=== PATIENT | female | born 1955 | race Caucasian/White ===

== ENCOUNTER 2024-03-22 20:59 | Emergency (ER) | payer MEDICARE, SELFPAY ==
[2024-03-22 21:05] VITALS: BP 158/88
[2024-03-22 22:19] VITALS: BMI 35.0
--- NOTE | 2024-03-22 22:32 | ED.GENMED ---
History of Present Illness
General
Chief Complaint: Post Operative Problem(s)
Source: patient
Exam Limitations: none
Time Seen by Provider: 03/22/24 22:21
Nursing documentation reviewed up to this point in time: agreed with
History of Present Illness
History of Present Illness:
68-year-old female presents to the emergency with increased pain and swelling of her left lower extremity. She did note slight erythema. Patient is 6 days status post left total knee at [facility]. According to family member she was
prescribed Tylenol and oxycodone but has not been compliant with her pain medication regime. Today she called her surgeon's office who advised her to come to an emergency department for evaluation. Denies chest pain or shortness of breath.
Reports no other symptoms at this time.
Past History
Past History
ED Past Medical History: Other (Lymphedema, Palpatations)
ED Past Surgical History: Other (R mastectomy for breast CA)
Social History
Tobacco: Non-smoker
Alcohol: None
Personal:
Living: with family
Review of Systems
Review of Systems
Allergies reviewed?: Yes
Other source history: family
All Other Systems: ROS reviewed and negative except as documented in HPI and ROS
Constitutional: Reports no symptoms
EENT: Reports no symptoms
Respiratory: Reports no symptoms
Cardiac: Reports no symptoms
ABD/GI: Reports no symptoms
: Reports no symptoms
Musculoskeletal: Reports joint pain, joint swelling and edema
Skin: Reports no symptoms; Denies itching or rash
Neurological: Reports no symptoms
Endocrine: Reports no symptoms
Hematologic/Lymphatic: Reports no symptoms
Psychiatric: Reports no symptoms
Phy Exam
General Physical Exam
General Presentation: well appearing and mild distress
General age: appears stated age
General Habitus: elderly
Cardiovascular Exam
Cardiovascular Exam: regular rate/rhythm and no edema
Pulmonary Exam
Pulmonary Exam: lungs clear and no respiratory distress
Neurological Exam
Neurological Exam: alert and oriented x3
Musculoskeletal Exam
Musculoskeletal Exam: edema, joint swelling and neuro vasc intact
Skin Exam
Skin Exam: normal color, warm/dry and erythema (Scant erythema not consistent with cellulitis)
Course
Orders/Labs/Results
Orders:
Orders
03/22/24 22:30
HYDROmorphone [Dilaudid] 0.5 mg IV NOW STA
Ondansetron Injectable [Zofran] 4 mg IV NOW STA
US Legs, Left [US Periph Venous LOWER Ext LT] Urgent
Comment:
Reason For Exam: incr swelling s/p TK
03/22/24 22:43
Complete Blood Count/With Diff Urgent
Comprehensive Metabolic Panel Urgent
PTT Urgent
Prothrombin Time Urgent
Abnormal Lab Results
03/22/24
22:43
RBC 3.11 L 10^6/uL
(4.20-5.40)
Hgb 9.3 L g/dL
(12.0-16.0)
Hct 27.7 L %
(37.0-47.0)
MPV 11.8 H fL
(7.4-10.4)
Absolute Monos (auto) 0.9 H 10^3/uL
(0.1-0.6)
Monocytes % 11.1 H %
(1.7-9.3)
PT 15.0 H Sec
(11.4-14.6)
APTT 37.2 H Sec
(23.4-35.0)
Carbon Dioxide 32 H mmol/L
(22-30)
Creatinine 0.5 L mg/dL
(0.6-1.0)
Glucose 124 H mg/dl
(70-99)
Total Bilirubin 1.4 H mg/dl
(0.2-1.3)
AST 40 H U/L
(14-36)
Total Protein 6.1 L g/dl
(6.3-8.2)
03/22/24 22:43
03/22/24 22:43
Vital Signs
Initial and Last Documented VS:
Initial Vital Signs
Temp Pulse Resp BP Pulse Ox
98.2 F 91 18 158/88 99
03/22/24 21:05 03/22/24 21:05 03/22/24 21:05 03/22/24 21:05 03/22/24 21:05
Last Documented Vital Signs
Temp Pulse Resp BP Pulse Ox
98.2 F 91 18 118/56 98
03/22/24 21:05 03/22/24 21:05 03/22/24 21:05 03/23/24 00:00 03/23/24 00:15
*Critical Care Note
Total Time (30-74mins, 75-104mins- exclusive of procedures): Not Applicable
Update Note
Update Note:
03/23/2024 0043 AM: Ultrasound of the leg is negative
ED Attending Note
-
Portions of this chart may have been created with voice recognition software.� Occasional wrong word or��sound alike� substitutions may have occurred due to the inherent limitations of voice recognition software.
Discharge Plan
Departure
Patient Disposition: Home (Routine Discharge)
Date of Disposition: 03/23/24
Time of Disposition: 01:13
Patient with high blood pressure during this ER visit?: Yes
Condition: Fair
Discharge Problem:
Acute postoperative pain
Instructions: Wound Care (DC), Postoperative Pain (DC)
Prescriptions:
No Action
No Meds
Referrals:
Hernan Uriostegui MD [Family Provider] -
Activity Restrictions/Additional Instructions:
It was a pleasure meeting you and taking part in your care. We hope for your continued healing and wellness.
Please read discharge instructions in their entirety. However, they are for general education and may not describe your exact diagnosis at discharge. Information on your ER visit and medical conditions were discussed with you along with appropriate
follow up information...
If indicated, please take your medications as instructed and indicated on discharge paperwork.
Please schedule a follow up appointment as directed. Call to schedule an appointment
Please return to the emergency department with ANY change in, persisting, or worsening of symptoms. If any of your symptoms do not improve, or persist, or become more severe within 6-12 hours, please return to the emergency department for further
care.
Please return to the emergency department if you develop a headache, neck pain/stiffness, fever greater than 100.4F, chest pain, shortness of breath, persistent nausea, vomiting, slurred speech, difficulty walking, numbness/tingling, weakness, signs
of infection or any other symptoms that are worrisome to you.
If you have any questions or concerns please do not hesitate to call the Hospital at or E-mail me directly at [email or web address]
Interventions
Interventions:
*Risk Screen - Suicide Last Done: 03/22/24 21:05
*General Assessment Last Done: 03/22/24 21:05
*Neglect/Abuse Screening Last Done: 03/22/24 21:05
ED- Fall Risk Assessment Last Done: 03/22/24 22:19
*ED COVID-19 Vaccine History Last Done: 03/22/24 22:19
*Nursing Disposition Last Done: 03/23/24 01:41
ED-Skin Assessment Last Done: 03/22/24 22:19
Discharge Date and Time
Discharge Date/Time: 03/23/24 01:41
Print Language: GEORGIAN
[2024-03-22] MEDS: DILAUDID 0.5 MG IV (22:43)
[2024-03-22] MEDS: ZOFRAN 4 MG IV (22:43)
[2024-03-22 22:47] VITALS: BP 144/65
[2024-03-22 23:00] VITALS: BP 129/60
[2024-03-22 23:08] LABS: ALT (SGPT) 34 U/L (0-35); AST (SGOT) 40 U/L (14-36); Albumin 3.7 g/dl (3.5-5.0); Alkaline Phosphatase 82 U/L (38-126); Blood Urea Nitrogen 16 mg/dl (7-17); Carbon Dioxide 32 mmol/L (22-30); Chloride 98 mmol/L (98-107); Estimated Creatinine Clearance 86 ml/min; Glucose 124 mg/dl (70-99); Potassium 3.7 mmol/L (3.5-5.1); Sodium 136 mmol/L (135-145); Total Bilirubin 1.4 mg/dl (0.2-1.3); Total Protein 6.1 g/dl (6.3-8.2); eGFR > 60.00
[2024-03-22 23:10] LABS: INR 1.14
[2024-03-22 23:11] LABS: APTT 37.2 Sec (23.4-35.0)
[2024-03-22 23:14] LABS: % Basophils 0.4 % (0-2); % Eosinophils 1.8 % (0-6); % Immature Granulocytes 0.5 % (0-0.5); % Lymphocytes 21.1 % (20.5-51.1); % Monocytes 11.1 % (1.7-9.3); % Neutrophils 65.1 % (42.2-75.2); Absolute Eosinophils 0.1 10^3/uL (0-0.7); Absolute Lymphocytes 1.7 10^3/uL (1.2-3.4); Absolute Monocytes 0.9 10^3/uL (0.1-0.6); Absolute Neutrophils 5.1 10^3/uL (1.4-6.5); Hematocrit 27.7 % (37.0-47.0); Hemoglobin 9.3 g/dL (12.0-16.0); Mean Corp Hgb Conc. 33.6 g/dL (33.0-37.0); Mean Corpuscular Hgb 29.9 pg (27.0-31.0); Mean Corpuscular Volume 89.1 fL (81.0-99.0); Mean Platelet Volume 11.8 fL (7.4-10.4); Nucleated Red Blood Cells % 0 %; Platelet Count 200 10^3/uL (130-400); Red Blood Cell Count 3.11 10^6/uL (4.20-5.40); Red Cell Dist. Width 13.3 % (11.5-14.5); White Blood Cell Count 7.8 10^3/uL (4.8-10.8)
[2024-03-23] VITALS: BP 118/56
== END 2024-03-23 01:41 | disposition home or self-care (01) ==
LOC: EMR 20:59
PROVIDERS: EMERGENCY PHYSICIAN Student in an Organized Health Care Education/Training Program; FAMILY PHYSICIAN Family Medicine
DX: G89.18 Other acute postprocedural pain (principal); M79.605 Pain in left leg; Z96.652 Presence of left artificial knee joint; Z85.3 Personal history of malignant neoplasm of breast; Z90.11 Acquired absence of right breast and nipple
CPT/HCPCS: 96374; 96375; 99284; 80053; 85025; 85610; 85730; 93971

== ENCOUNTER → 2025-01-18 10:42 | Outpatient (REF) | payer MEDICARE, SELFPAY | LOC: DHSLP 10:42 | PROVIDERS: ATTENDING PHYSICIAN Internal Medicine Critical Care Medicine; FAMILY PHYSICIAN Internal Medicine | DX: G47.30 Sleep apnea, unspecified (principal); R06.83 Snoring | CPT/HCPCS: 95800 ==